=== PATIENT | female | born 1970 | race Caucasian/White ===

== ENCOUNTER 2016-10-01 20:34 | Emergency (ER) | payer BC, OTHER ==
[~2016-10-01] VITALS: Ht 167.6 cm; Wt 59.8 kg
[~2016-10-01 20:34] MED LIST: ADVA250A INH; CYCL5TAB PO; DICL50 PO; Z.0.BCPILL PO
[2016-10-01 20:35] VITALS: BP 116/75; PULSE 84; RESP 18; TEMP 98.2; O2SAT 98
--- NOTE | 2016-10-01 20:56 | PD ---
HPI Chief Complaint: ENT Complaint Time Seen by Provider: 20:48 Travel History International Travel<30 days: No Contact w/Intl Traveler<30days: No Traveled to known affect area: No History of Present Illness HPI 46 year-old female female presents to the emergency department by private transportation the care of her spouse for evaluation of throat pain and esophageal discomfort. According the patient 2 hours prior to arrival to the emergency department while eating dinner she noted upon swallowing pizza crust that she had a sensation of discomfort or injury. Patient reports that the crust was very hard and sharp. Patient is concerned that she may have abraded or lacerated her esophagus. Patient had no choking and has had no choking subsequently. Patient's had no nausea or vomiting. Patient's had no difficulty managing her swallowing her own saliva. Patient is subsequently been able to drink fluids and eat ice cream without difficulty although she does note she has a lump like sensation with swallowing. Patient denies any history of esophageal disease or esophageal strictures. Patient does have reflux but takes no medication for this. No report of hemoptysis or hematemesis. No shortness of breath no stridor no hoarseness no chest pain no pleuritic pain. Patient rates pain 7/10 in intensity. Patient states she did attempt some warm saltwater gargles without symptom relief and thinks perhaps it made symptoms worse. Last period 2 weeks ago and denies ; takes control pills. PFSH Past Medical History Narrative Medical GERD asthma; sinus surgery; occasional alcohol use; nursing notes reviewed ?: Unknown LMP: 2 weeks ago Social History Tobacco Use: No Allergies-Medications (Allergen,Severity, Reaction): Coded Allergies: Latex (Verified Allergy, Mild, 10/01/16) Levaquin (Verified Allergy, Mild, 10/01/16) Penicillin (Verified Allergy, Mild, 10/01/16) Reported Meds & Prescriptions Reported Meds & Active Scripts Active Carafate Liq (Sucralfate) 1 Gm/10 Ml Susp 1 Gm PO QID 5 Days on empty stomach Review of Systems Except as stated in HPI: all other systems reviewed are Neg General / Constitutional: No: Fever HENT: Positive: Sore Throat, No: Congestion Cardiovascular: No: Chest Pain or Discomfort Respiratory: No: Cough, Shortness of Breath, Wheezing, Hemoptysis, Stridor, Pleuritic Pain Gastrointestinal: No: Nausea, Vomiting, Abdominal Pain Musculoskeletal: No: Pain Skin: No Rash Neurologic: No: Weakness Psychiatric: Positive: Anxiety Hematologic/Lymphatic: No: Easy Bruising Physical Exam Narrative GENERAL: Well-developed well-nourished female in no acute distress no respiratory distress; triage vital signs values in normal range; no stridor or hoarseness. SKIN: Warm and dry. HEAD: Normocephalic. EYES: No scleral icterus. No injection or drainage. ENT: Mucous membranes moist airway is patent; no angioedema NECK: Supple, trachea midline. No JVD or lymphadenopathy. CARDIOVASCULAR: Regular rate and rhythm without murmurs, gallops, or rubs. RESPIRATORY: Breath sounds equal bilaterally. No accessory muscle use. GASTROINTESTINAL: Abdomen soft, non-tender, nondistended. Data Data Last Documented VS Vital Signs Date Time Temp Pulse Resp B/P Pulse Ox O2 Delivery O2 Flow Rate FiO2 10/01/16 23:00 76 18 131/73 100 Room Air 10/01/16 20:35 98.2 Orders Sucralfate Liq (Carafate Liq) (10/01/16 21:00) Ibuprofen Liq (Motrin Liq) (10/01/16 22:45) Chest, Single Ap (10/01/16 ) Soft Tissue Neck (10/01/16 ) MDM Medical Decision Making Medical Screen Exam Complete: Yes Emergency Medical Condition: Yes Medical Record Reviewed: Yes Interpretation(s) Last Impressions Soft Tissue Neck X-Ray 10/01/16 0000 Signed Impressions: Service Date/Time: Saturday, October 01, 2016 22:45 - CONCLUSION: Normal examination. Chapin Godwin Jr., MD Chest X-Ray 10/01/16 0000 Signed Impressions: Service Date/Time: Saturday, October 01, 2016 22:40 - CONCLUSION: No acute disease. Chapin Godwin Jr., MD Differential Diagnosis Esophageal contusion, esophageal spasm, unlikely laceration, perforation, or retained foreign body Narrative Course Patient with normal physical exam and normal range vital signs; patient is no apparent distress no respiratory distress. Patient given trial of Carafate 1 g oral I mouth At 10:30 patient has had medication on board for one hour does not report any significant improvement continues to complain of pain just at the upper chest and lower neck area associated with swallowing; again patient appears clinically stable. Patient administered weight-based ibuprofen and imaging study ordered. Patient aware of abnormal imaging studies; discomfort has diminished; patient is stable for outpatient management. Diagnosis Primary Impression: Esophageal spasm Additional Impression: Esophageal abrasion Qualified Code: S27.818A - Esophageal abrasion, initial encounter Referrals: Primary Care Physician call for appointment Patient Instructions: General Instructions Additional Instructions: Follow soft//liquid diet 24-48 hours Avoid hot foods and beverages May use liquid/children's ibuprofen/Advil/Motrin or liquid/children's Tylenol per package directions for minor to moderate discomfort Increase fluid hydration Return to the emergency department for any concerns or change in condition Med/Other Pt SpecificInfo: Prescription(s) given Scripts Sucralfate Liq (Carafate Liq)1 Gm/10 Ml Susp1 Gm PO QID 5 Days Ref 0 on empty stomach Prov:Emilee Mane MD 10/01/16 Disposition: 01 DISCHARGE HOME Condition: Stable Emilee Mane MD October 01, 2016 20:55
[2016-10-01] MEDS ORDERED: SUCRALFATE 1 GM/10 ML CUP PO ONE (21:00)
[2016-10-01 21:05] VITALS: BP 119/67; PULSE 84; RESP 18; O2SAT 96
[2016-10-01 22:00] VITALS: BP 114/69; PULSE 77; RESP 18; O2SAT 99
[2016-10-01] MEDS ORDERED: IBUPROFEN SUSP 100 MG/5 ML UDC PO ONE (22:45)
--- NOTE | 2016-10-01 22:52 | RADHPO ---
EXAM DATE/TIME: 10/01/2016 22:40 [facility] COMPARISON: No previous studies available for comparison. INDICATIONS : Chest pain. MEDICAL HISTORY : None. SURGICAL HISTORY : None. ENCOUNTER: Initial ACUITY: 1 day PAIN SCORE: 7/10 LOCATION: Bilateral chest FINDINGS: A single view of the chest demonstrates the lungs to be symmetrically aerated without evidence of mas s, infiltrate or effusion. The cardiomediastinal contours are unremarkable. Osseous structures are intact. CONCLUSION: No acute disease. Chapin Godwin Jr., MD on October 01, 2016 at 22:50 Board Certified Radiologist. This report was verified electronically.
--- NOTE | 2016-10-01 22:52 | RADHPO ---
EXAM DATE/TIME: 10/01/2016 22:45 [facility] COMPARISON: No previous studies available for comparison. INDICATIONS : Throat pain after eating pizza. MEDICAL HISTORY : None. SURGICAL HISTORY : None. ENCOUNTER: Initial ACUITY: 1 day PAIN SCORE: 7/10 LOCATION: Bilateral neck FINDINGS: Two view examination of the soft tissues of the neck demonstrates the hypopharyngeal airway to have a grossly normal configuration. The trachea is midline. No radiopaque foreign bodies are seen. CONCLUSION: Normal examination. Chapin Godwin Jr., MD on October 01, 2016 at 22:50 Board Certified Radiologist. This report was verified electronically.
[2016-10-01 23:00] VITALS: BP 131/73; PULSE 76; RESP 18; O2SAT 100
[2016-10-01] MEDS ORDERED: CARA1SUS3 PO (23:10)
== END 2016-10-01 23:47 | disposition home or self-care (01) ==
LOC: PHED 20:34
DX: K22.4 Dyskinesia of esophagus (principal); S27.818A Other injury of esophagus (thoracic part), initial encounter; F41.9 Anxiety disorder, unspecified; K21.9 Gastro-esophageal reflux disease without esophagitis; J45.909 Unspecified asthma, uncomplicated; W45.8XXA Other foreign body or object entering through skin, initial encounter
CPT/HCPCS: 70360; 71010; 99284